=== PATIENT | male | born 1950 | race Caucasian/White ===

== ENCOUNTER 2024-09-14 14:32 | Inpatient (IN) | payer MEDICARE ==
[2024-09-14] MEDS: Albuterol/Ipratropium 3.0-0.5 MG/3 ML Neb Soln NEB ONE (15:08)
[2024-09-14 15:11] LABS: TROPONIN I 13.5 pg/mL (4.0-60.3)
[2024-09-14] MEDS: methylPREDNISolone Sodium Succinate 125 MG/2 ML SDV IVPUSH ONE (15:12)
[2024-09-14 15:14] LABS: BASE EXCESS VENOUS,POC 3 mmol/L (-2 - 3+); PCO2 VENOUS,POC 60 mmHg (41-51); PH VENOUS,POC 7.33 pH Units (7.32-7.43)
[2024-09-14 15:34] LABS: D-DIMER QUANTITATIVE 0.61 mg/LFEU (0.0-0.59); INR 1.03 (1.00-1.24); PROTHROMBIN TIME 10.7 sec (9.0-11.1)
[2024-09-14 15:38] LABS: PTT,PARTIAL THROMBOPLSTIN TIME 27.5 SECONDS (24.4-33.2)
[2024-09-14 17:29] LABS: BILIRUBIN,URINE NEGATIVE (NEGATIVE); GLUCOSE,URINE >1000 mg/dL (NORMAL); KETONES,URINE NEGATIVE (NEGATIVE); LEUKOCYTE ESTERASE,URINE NEGATIVE (NEGATIVE); NITRITE,URINE NEGATIVE (NEGATIVE); OCCULT BLOOD,URINE NEGATIVE (NEGATIVE); PROTEIN,URINE NEGATIVE (NEGATIVE); UROBILINOGEN,URINE NORMAL (NEGATIVE)
[2024-09-14 17:30] LABS: APPEARANCE,URINE CLEAR (CLEAR); COLOR,URINE YELLOW (YELLOW)
[2024-09-14] MEDS ORDERED: Prochlorperazine 5 MG in Sodium Chloride 0.9% 50 ML IV PRN (18:16)
[2024-09-14] MEDS ORDERED: Ondansetron 4 MG/2 ML SDV IV PRN (18:16)
[2024-09-14] MEDS: Sodium Chloride 0.9% 1,000 ML IV SCH (20:01)
[2024-09-14] MEDS: Iopamidol 755 Mg/ML 100 ML Bottle IV SCH (20:19)
[2024-09-14] MEDS ORDERED: Acetaminophen/oxyCODONE 325-5 MG Tab PO PRN (20:29)
[2024-09-14] MEDS: Non-Formulary Medication 1 Each (Pregabalin [Pregabalin] 75 MG Capsule) PO SCH ×2 (20:37→20:40)
[2024-09-14] MEDS: Enoxaparin 40 MG/0.4 ML Syringe SUBCUT SCH (20:37)
[2024-09-14] MEDS: Pregabalin 75 MG Cap ONE (20:40)
[2024-09-14] MEDS: Pregabalin 100 MG Cap PO SCH (22:52)
[2024-09-15] MEDS: Sodium Chloride 0.9% 10 ML Syringe FLUSH PRN (04:00)
[2024-09-15] MEDS: Albuterol/Ipratropium 3.0-0.5 MG/3 ML Neb Soln NEB PRN (04:20)
[2024-09-15 06:46] LABS: HEMOGLOBIN 15.5 g/dL (12.9-17.7); MEAN CORPUSCULAR HEMOGLOBIN 27.3 pg (27.0-33.3); MEAN CORPUSCULAR HGB CONC 32.9 g/dL (28.7-35.3); MEAN CORPUSCULAR VOLUME 83.1 fL (80.8-98.7); MEAN PLATELET VOLUME 8.5 fL (6.7-11.0); PLATELET COUNT,PLT 135 x10(3)uL (117-477); RED BLOOD CELL COUNT 5.66 x10(6)uL (3.90-5.90); RED CELL DISTRIBUTION WIDTH 16.3 % (12.4-15.0); WHITE BLOOD CELL COUNT,WBC 7.2 x10-3/uL (3.2-10.1)
[2024-09-15 07:00] LABS: A/G RATIO 0.8; ALANINE AMINOTRANSFERASE,ALT 31 U/L (12-36); ALBUMIN 3.1 g/dL (3.2-4.6); ALKALINE PHOSPHATASE 92 IU/L (56-112); ASPARTATE AMNIOTRANSFERASE,AST 27 IU/L (5-25); BILIRUBIN TOTAL 0.5 mg/dL (0.1-1.3); BLOOD UREA NITROGEN,BUN 26 mg/dL (7-18); CALCIUM 8.3 mg/dL (8.6-10.2); CARBON DIOXIDE,CO2 30 mmol/L (21-32); CHLORIDE,CL 102 mmol/L (100-110); EST CRCL DRUG DOSING (CG) 60.59 mL/min; ESTIMATED GFR 79 mL/min (>60); GLUCOSE RANDOM 223 mg/dL (80-116); PROTEIN TOTAL,TP 7.1 g/dL (6.0-8.0); SODIUM,NA 138 mmol/L (135-145)
[2024-09-15 07:16] LABS: ANISOCYTOSIS FEW; BAND PERCENT MAN 6 % (0-6); LYMPHOCYTES PERCENT MAN 14 % (13-37); MONOCYTES PERCENT MAN 5 % (4-12); SEG NEUTROPHILS PERCENT MAN 75 % (46-82)
[2024-09-15] MEDS: Pregabalin 75 MG Cap PO SCH (09:23)
[2024-09-15] MEDS: Dexamethasone 4 MG/ML 5 ML MDV IVPUSH SCH (09:23)
[2024-09-15] MEDS ORDERED: Sildenafil 20 MG Tab PO PRN (14:52)
[2024-09-15] MEDS ORDERED: Colchicine 0.6 MG Tab PO PRN (14:52)
[2024-09-15] MEDS ORDERED: Albuterol 6.7 GM Inhaler INH PRN (14:52)
[2024-09-15] MEDS ORDERED: Nystatin Ointment 15 GM Tube TOP PRN (14:52)
[2024-09-15] MEDS ORDERED: Nitroglycerin 0.4 MG Tab.SL SL PRN (14:52)
[2024-09-15] MEDS ORDERED: 50% Dextrose in Water 50 ML Syringe IVPUSH PRN (14:58)
[2024-09-15] MEDS ORDERED: Glucagon,Human Recombinant 1 MG Vial IM PRN (14:58)
[2024-09-15] MEDS: Fluticasone NASAL Spray 16 GM Bottle NASBOTH PRN (15:57)
[2024-09-15] MEDS: Azelastine Nasal Soln 30 ML Spray Bottle NASBOTH SCH (15:57)
[2024-09-15] MEDS: Albuterol/Ipratropium 3.0-0.5 MG/3 ML Neb Soln NEB SCH (15:57)
[2024-09-15] MEDS ORDERED: Insulin Lispro 100 Unit/ML 3 ML KwikPen SUBCUT ONE (17:28)
[2024-09-15] MEDS: Insulin Lispro 100 Unit/ML 3 ML KwikPen SUBCUT SCH (17:52)
[2024-09-15] MEDS: diphenhydrAMINE 25 MG Cap PO PRN (19:03)
[2024-09-15] MEDS: Ezetimibe 10 MG Tab PO SCH (20:59)
[2024-09-15] MEDS: Magnesium Oxide 400 MG Tab PO SCH (20:59)
[2024-09-15] MEDS: Benzonatate 100 MG Cap PO SCH (20:59)
[2024-09-15] MEDS ORDERED: IMIQUIMOD TOP SCH (21:00)
[2024-09-15] MEDS: Triamcinolone Acetonide 0.1% Crm 15 GM Tube TOP SCH (21:35)
[2024-09-15] MEDS: Latanoprost 0.005% Ophth Soln 2.5 ML Bottle EYEBOTH SCH (22:23)
[2024-09-15] MEDS: Formoterol/Mometasone 100-5 MCG 8.8 GM Inhaler IH SCH (22:24)
[2024-09-16 06:46] LABS: BASOPHILS PERCENT AUTO 0.2 % (0.3-3.8); EOSINOPHILS PERCENT AUTO 0.2 % (0.1-6.8); HEMATOCRIT 46.9 % (38.3-50.1); HEMOGLOBIN 15.2 g/dL (12.9-17.7); LYMPHOCYTES ABSOLUTE AUTO 1.1 x10-3/uL (0.5-4.5); LYMPHOCYTES PERCENT AUTO 11.1 % (15.8-45.3); MEAN CORPUSCULAR HEMOGLOBIN 27.1 pg (27.0-33.3); MEAN CORPUSCULAR HGB CONC 32.5 g/dL (28.7-35.3); MEAN CORPUSCULAR VOLUME 83.4 fL (80.8-98.7); MEAN PLATELET VOLUME 8.4 fL (6.7-11.0); MONOCYTES ABSOLUTE AUTO 0.8 x10-3/uL (0.0-1.2); MONOCYTES PERCENT AUTO 7.8 % (5.5-15.2); NEUTROPHILS ABSOLUTE AUTO 8.2 x10-3/uL (1.7-6.9); NEUTROPHILS PERCENT AUTO 80.7 % (40.3-71.8); PLATELET COUNT,PLT 129 x10(3)uL (117-477); RED CELL DISTRIBUTION WIDTH 16.5 % (12.4-15.0); WHITE BLOOD CELL COUNT,WBC 10.1 x10-3/uL (3.2-10.1)
[2024-09-16 06:53] LABS: RED BLOOD CELL COUNT 5.62 x10(6)uL (3.90-5.90)
[2024-09-16 06:54] LABS: BLOOD UREA NITROGEN,BUN 27 mg/dL (7-18); CALCIUM 8.5 mg/dL (8.6-10.2); CARBON DIOXIDE,CO2 29 mmol/L (21-32); CHLORIDE,CL 104 mmol/L (100-110); CREATININE 0.9 mg/dL (0.70-1.30); EST CRCL DRUG DOSING (CG) 67.32 mL/min; ESTIMATED GFR 90 mL/min (>60); GLUCOSE RANDOM 164 mg/dL (80-116); POTASSIUM,K 4.8 mmol/L (3.5-5.3); SODIUM,NA 140 mmol/L (135-145)
[2024-09-16] MEDS: Cholecalciferol (Vitamin D3) 25 MCG Tab PO SCH (08:10)
[2024-09-16] MEDS: Aspirin 81 MG Tab.EC PO SCH (08:10)
[2024-09-16] MEDS: Furosemide 20 MG Tab PO SCH (08:10)
[2024-09-16] MEDS: Allopurinol 300 MG Tab PO SCH (08:10)
[2024-09-16] MEDS: Lisinopril 20 MG Tab PO SCH (08:11)
[2024-09-16] MEDS ORDERED: Pravastatin 20 MG Tab PO SCH (09:00)
[2024-09-16] MEDS ORDERED: Empagliflozin 10 MG Tab PO SCH (09:00)
[2024-09-16] MEDS: Sennosides/Docusate Sodium 50-8.6 MG Tab PO PRN (09:17)
[2024-09-16] MEDS: Metoprolol Succinate 50 MG Tab.ER PO SCH (09:17)
[2024-09-16] MEDS: Vitamin B Complex with Vitamin C Tab PO SCH (09:59)
[2024-09-16] MEDS: UREA 20% TOP PRN (11:25)
[2024-09-16 14:47] VITALS: BP 122/53; PULSE 65
[2024-09-16] MEDS ORDERED: Metoprolol Succinate 50 MG Tab.ER PO SCH (21:00)
[2024-09-17] MEDS ORDERED: Pravastatin 20 MG Tab PO SCH (09:00)
== END 2024-09-16 14:20 | disposition home or self-care (01) | DRG 177 ==
LOC: FB.ED 14:32 → FB.MS 18:16
PROVIDERS: ADMIT Emergency Medicine; ATTEND Internal Medicine
PROC: 3E0333Z Introduction of Anti-inflammatory into Peripheral Vein, Percutaneous Approach (ICD-10-PCS; principal; 2024-09-15)
DX: U07.1 COVID-19 (principal); R09.02 Hypoxemia; J44.9 Chronic obstructive pulmonary disease, unspecified; E11.9 Type 2 diabetes mellitus without complications; E78.5 Hyperlipidemia, unspecified; G62.9 Polyneuropathy, unspecified; J96.01 Acute respiratory failure with hypoxia; J44.1 Chronic obstructive pulmonary disease with (acute) exacerbation; H26.9 Unspecified cataract; H54.7 Unspecified visual loss; E78.00 Pure hypercholesterolemia, unspecified; E11.51 Type 2 diabetes mellitus with diabetic peripheral angiopathy without gangrene; I73.9 Peripheral vascular disease, unspecified; G89.29 Other chronic pain; M54.9 Dorsalgia, unspecified; E66.9 Obesity, unspecified; I50.9 Heart failure, unspecified; F15.90 Other stimulant use, unspecified, uncomplicated; E11.42 Type 2 diabetes mellitus with diabetic polyneuropathy; G47.33 Obstructive sleep apnea (adult) (pediatric); Z88.6 Allergy status to analgesic agent; Z88.8 Allergy status to other drugs, medicaments and biological substances; Z79.82 Long term (current) use of aspirin; Z79.1 Long term (current) use of non-steroidal anti-inflammatories (NSAID); Z79.899 Other long term (current) drug therapy; Z68.36 Body mass index [BMI] 36.0-36.9, adult; Z95.1 Presence of aortocoronary bypass graft; Z90.49 Acquired absence of other specified parts of digestive tract; Z90.89 Acquired absence of other organs; Z98.890 Other specified postprocedural states; Z87.891 Personal history of nicotine dependence
CPT/HCPCS: 36415; 71275; 81003; 83880; 84484; 85379; 85610; 85730; 87428; 93005; 94640; 96374; 99285; J2919; 80048; 80053; 82947; 85025; 94150; 99223; 99238; A9270-GY; J1100; J1650; J1815; J7030; J7620; Q9967